=== PATIENT | female | born 1935 | race Caucasian/White ===

== ENCOUNTER → 2017-03-30 07:42 | Outpatient (CLI) | payer MEDICARE, SELFPAY ==
--- NOTE | 2017-03-30 07:46 | US_ITS ---
STUDY: ABDOMINAL ULTRASOUND - RIGHT UPPER QUADRANT REASON FOR VISIT: Female, 81 years old. Right upper quadrant pain. TECHNIQUE: Ultrasound evaluation of the right upper quadrant was performed with real-time and static montoya-scale imaging. TECHNICAL QUALITY: Adequate. COMPARISON: Comparison is made with prior sonogram dated April 18, [address] scan the abdomen dated December 29, 2016. FINDINGS: Liver: The liver is slightly enlarged and measures 18.4 cm. There is normal echogenicity of the liver. The bile ducts are within normal limits. There is hepatic color flow. The direction of portal flow is hepatopetal. The apical densities seen in the right lobe of liver on the prior CT scan is not seen at this time. The patient claims to have received radiation treatment at that level. Gallbladder: Normal distended gallbladder. The gallbladder wall measures 2.0 mm. There is a negative sonographic Vergara's sign. There is no pericholecystic fluid. There are multiple echogenic structures within the gallbladder, consistent with multiple gallstones. Common Bile Duct (C.B.D.): The common bile duct measures mm. Pancreas: Normal size of the head, body and tail of the pancreas. There is normal echogenicity of the pancreas. There is no demonstrated pancreatic mass or cyst. Right Kidney: Normal size of the right kidney. The right kidney measures 10.7 cm x 6.1 cm x 6.1 cm. Normal renal cortex. The right cortex measures 1.9 cm. There is no demonstrated renal mass or cyst. There is no right hydronephrosis. US/Liver IMPRESSION: Mild hepatomegaly. Multiple gallstones. Electronically Signed: Jeramie Hamlin MD at 10:28 EST Tel [phone], Service support ,
--- NOTE | 2017-03-30 07:49 | RAD_ITS ---
STUDY: X-RAY CHEST REASON FOR EXAM: Female, 81 years old. COPD. History of lung cancer. TECHNIQUE: PA and lateral views of the chest. COMPARISON: Comparison is made with prior examination dated October 22, 2015. FINDINGS: 16 again, there is complete opacification of the right hemithorax with shift of the heart and mediastinal structures towards the right side of midline. This is in keeping with the patient's history of prior right pneumonectomy. There is hyperexpansion of the left hemithorax. Once again, there is evidence of increased linear markings in the left midlung. This is unchanged. The previously seen peripheral nodule in the left lateral chest is not as well seen at this time. Residual pleural thickening is seen. Normal size heart. Normal mediastinum and kavin. Normal visualized pulmonary arteries. There is atherosclerotic calcification of the aortic arch with tortuosity. There is demineralization of the osseous structures. Increased kyphosis. Normal visualized ribs, clavicles, and shoulders. There is no demonstrated abnormality of the visualized soft tissue structures of the upper abdomen. RAD/Chest PA and Lateral IMPRESSION: Stable examination. The pleural-based nodular density seen in the left lateral chest wall has decreased in size. Persistent scarring is seen. Electronically Signed: Jeramie Hamlin MD at 13:27 EST Tel [phone], Service support ,
== END ==
PROVIDERS: Family Provider Preventive Medicine Occupational Medicine; PCP Preventive Medicine Occupational Medicine; Visit Provider Internal Medicine Pulmonary Disease
DX: R10.11 Right upper quadrant pain (principal); J44.9 Chronic obstructive pulmonary disease, unspecified; Z85.118 Personal history of other malignant neoplasm of bronchus and lung
CPT/HCPCS: 71046; 76705

== ENCOUNTER → 2017-07-02 07:24 | Outpatient (CLI) | payer MEDICARE, SELFPAY ==
--- NOTE | 2017-07-02 07:29 | CT_ITS ---
STUDY: CT ABDOMEN WITH CONTRAST REASON FOR EXAM: Female, 81 years old. LUNG CANCER F/U RADIATION DOSAGE (If Supplied By Facility): CTDIvol = ( 17.28 ) mGy, DLP = ( 690.74 ) mGycm TECHNIQUE: Transaxial images were obtained post I.V. administration of 100 ml of Isovue 300 contrast, and without oral contrast. Sagittal and coronal images were reconstructed. Individualized dose optimization techniques were used for this CT. COMPARISON: CT Abdomen Dec 29 2016 1:09pm FINDINGS: There are atherosclerotic calcifications of visualized coronary arteries. Stable large right pleural effusion. Stable shift of the mediastinum to the right side. Obstructive left lower lobe mass is noted. It occludes the lingular bronchus. There is a diffuse contour abnormality of the liver consistent with cirrhotic changes. The hypodense lesion in the right lobe of liver is now exophytic. It measures 15 mm. There are multiple gallstones. There is mild splenomegaly. Normal pancreas. Normal bilateral adrenal glands. Normal right kidney. 6 mm hypodensity of the left kidney. It Is too small to catheterize. Normal visualized stomach. Normal small intestine. There are multiple colonic diverticula consistent with diverticulosis. There is non-visualization of the appendix. There is diffuse atherosclerotic calcification of the abdominal aorta, without a demonstrated aneurysm. Normal inferior vena cava. Normal retroperitoneum. Normal abdominal wall. There are diffuse degenerative changes of the visualized lumbar spine. CT/Abdomen WITH IV Contrast IMPRESSION: Stable large right pleural effusion. Stable shift of the mediastinum to the right side. Obstructive left lower lobe mass is noted. It occludes the lingular bronchus. There is a diffuse contour abnormality of the liver consistent with cirrhotic changes. The hypodense lesion in the right lobe of liver is now exophytic. It measures 15 mm. There is mild splenomegaly. 6 mm hypodensity of the left kidney. It is too small to catheterize. There are multiple colonic diverticula consistent with diverticulosis. Gallstones. There is diffuse atherosclerotic calcification of the abdominal aorta, without a demonstrated aneurysm. Electronically Signed: Alexx Moran MD at 20:58 EDT , Service support ,
--- NOTE | 2017-07-02 07:31 | CT_ITS ---
STUDY: CT CHEST WITH CONTRAST REASON FOR EXAM: Female, 81 years old. LUNG CANCER F/U. RIGHT LUNG REMOVED AND WEDGE REMOVED FROM LEFT LUNG RADIATION DOSAGE (If Supplied By Facility): CTDIvol = ( 8.82 ) mGy, DLP = ( 388.04 ) mGycm TECHNIQUE: Transaxial imaging was performed following intravenous administration of 100 ml of Isovue 300 contrast material. Individualized dose optimization techniques were used for this CT. COMPARISON: ct Dec 29 2016 1:14pm . FINDINGS: There is no pneumothorax. Right pneumonectomy changes. RIGHT pleural effusion. Stable rightward shift of the mediastinum. There are scattered blebs and bullae. This can be seen in pulmonary emphysema. There are degenerative changes of the shoulders. There are calcifications of the coronary arteries. Normal mediastinum. There is left hilar mass measuring 34 x 31 mm. It appears to invade into the lingular portion of the bronchus. Normal pulmonary arteries. There is atherosclerotic calcification of the aortic arch with tortuosity and elongation of the aortic arch and descending thoracic aorta. There are multi-level degenerative changes of the thoracic spine. There are stones in the gallbladder. Spleen is enlarged. CT/Chest WITH Contrast IMPRESSION: There is left hilar mass measuring 34 x 31 mm. It appears to invade into the lingular portion of the bronchus. It appears relatively stable in size. Cholelithiasis. Splenomegaly. Electronically Signed: Alexx Moran MD at 21:55 EDT , Service support ,
[2017-07-02 07:46] LABS: CREATININE FINGERSTICK 0.7 mg/dL (0.55-1.02); EGFR FINGERSTICK > 60.0000 mL/min (>60)
== END ==
PROVIDERS: Family Provider Preventive Medicine Occupational Medicine; PCP Preventive Medicine Occupational Medicine; Visit Provider Internal Medicine Medical Oncology
DX: Z01.812 Encounter for preprocedural laboratory examination (principal); C34.12 Malignant neoplasm of upper lobe, left bronchus or lung
CPT/HCPCS: 71260; 74160; Q9967